=== PATIENT | female | born 1975 | race Caucasian/White ===

== ENCOUNTER 2016-10-22 05:56 | Emergency (ER) | payer OTHER ==
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
--- NOTE | 2016-10-22 08:07 | ED ORDER SUMMARY ---
..... Patient: MAINOR AQUINO OrderSheet [facility] VisitID: [id number] [place] [address] 41y, F Registration Date/Time: 10/22/2016 ORDER SHEET Weight: 58.9 kg (stated) Allergies: No Known Drug Allergy GENERAL ORDERS: CT Head wo Cont Urgent (06:36 10/22/2016 Sixto Gorman) (Ack 6:37 AMcQuoid ER Tech1) (7:10 Annie) CT Sinus/Facial Bones wo Cont Urgent (06:36 10/22/2016 Sixto Gorman) (Ack 6:37 AMcQuoid ER Tech1) (7:10 Annie) CBC w Diff Urgent (06:37 10/22/2016 Sixto Gorman) (Ack 6:38 AMcQuoid ER Tech1) (6:40 AMcQuoid ER Tech1) CMP Urgent (06:37 10/22/2016 Sixto Gorman) (Ack 6:38 AMcQuoid ER Tech1) (6:40 AMcQuoid ER Tech1) UA-Culture if indicated Urgent (06:37 10/22/2016 Sixto Gorman) (Ack 6:38 AMcQuoid ER Tech1) (7:54 MCook R.N.) (Cancelled: Physician Order8:06 Sixto Gorman) Urine Urgent (06:37 10/22/2016 Sixto Gorman) (Ack 6:38 AMcQuoid ER Tech1) (7:54 MCook R.N.) Urine Drug Screen Urgent (06:37 10/22/2016 Sixto Gorman) (Ack 6:38 AMcQuoid ER Tech1) (7:54 MCook R.N.) (Cancelled: Physician Order8:06 Sixto Gorman) Ethyl Alcohol Urgent (06:37 10/22/2016 Sixto Gorman) (Ack 6:38 AMcQuoid ER Tech1) (6:40 AMcQuoid ER Tech1) MEDICATION ORDERS: IV FLUIDS: IV NS : initial bolus none -, then 1000 mL/hr for X1 (NOW) (06:36 10/22/[address] (Ack 6:37 HSoule) (6:41 HSoule) ORDER SHEET NOTES: [Electronically signed by Jose E Squires Dr. (08:13 10/22/2016)] [Electronically signed by Debbie Mahan R.N. (09:12 10/22/2016)] [Electronically locked/signed by Debbie Mahan R.N. (09:12 10/22/2016)]
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
--- NOTE | 2016-10-22 08:07 | ED ORDER SUMMARY ---
..... Patient: MAINRO AQUION OrderSheet [facility] VisitID: [id number] [place] [address] 41y, F Registration Date/Time: 10/22/2016 ORDER SHEET Weight: 58.9 kg (stated) Allergies: No Known Drug Allergy GENERAL ORDERS: CT Head wo Cont Urgent (06:36 10/22/2016 Sixto Gorman) (Ack 6:37 AMcQuoid ER Tech1) (7:10 Annie) CT Sinus/Facial Bones wo Cont Urgent (06:36 10/22/2016 Sixto Gorman) (Ack 6:37 AMcQuoid ER Tech1) (7:10 Annie) CBC w Diff Urgent (06:37 10/22/2016 Sixto Gorman) (Ack 6:38 AMcQuoid ER Tech1) (6:40 AMcQuoid ER Tech1) CMP Urgent (06:37 10/22/2016 Sixto Gorman) (Ack 6:38 AMcQuoid ER Tech1) (6:40 AMcQuoid ER Tech1) UA-Culture if indicated Urgent (06:37 10/22/2016 Sixto Gorman) (Ack 6:38 AMcQuoid ER Tech1) (7:54 MCook R.N.) (Cancelled: Physician Order8:06 Sixto Gorman) Urine Urgent (06:37 10/22/2016 Sixto Gorman) (Ack 6:38 AMcQuoid ER Tech1) (7:54 MCook R.N.) Urine Drug Screen Urgent (06:37 10/22/2016 Sixto Gorman) (Ack 6:38 AMcQuoid ER Tech1) (7:54 MCook R.N.) (Cancelled: Physician Order8:06 Sixto Gorman) Ethyl Alcohol Urgent (06:37 10/22/2016 Sixto Gorman) (Ack 6:38 AMcQuoid ER Tech1) (6:40 AMcQuoid ER Tech1) MEDICATION ORDERS: IV FLUIDS: IV NS : initial bolus none -, then 1000 mL/hr for X1 (NOW) (06:36 10/22/[address] (Ack 6:37 HSoule) (6:41 HSoule) ORDER SHEET NOTES: [Electronically signed by Jose E Squires Dr. (08:13 10/22/2016)] [Electronically signed by Debbie Mahan R.N. (09:12 10/22/2016)] [Electronically locked/signed by Debbie Mahan R.N. (09:12 10/22/2016)]
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
--- NOTE | 2016-10-22 09:13 | ED MAR SUMMARY ---
..... Medication Administration Record [facility] [address] [place] [address] Patient: MAINOR AQUINO Visit ID: [id number] 41y, F Weight: 58.9 kg Height/Length: 64 in BMI: 22.3 ALLERGIES: No Known Drug Allergy Start 06:41 10/22/2016 Kenna Garay,, Stop 07:57 10/22/2016 Isaias Temple R.N. Medication Administered: IV NS (SALINE), Dose: IV Fluids over 1 hour(s), Rate: 1000 mL/hr, Dispensed: 1000 mL bag, Site: #1 right AC. Medication Ordered: IV NS : initial bolus none -, then 1000 mL/hr for X1 (NOW).
--- NOTE | 2016-10-22 09:13 | ED MED RECONCILIATION SUMMARY ---
Patient: MAINOR AQUINO Medication Reconciliation Report [facility] VisitID: [id number] [address] [place] [address] 41y, F Registration Date/Time: 10/22/2016 Weight: 58.9 kg Height/Length: 64 in. BMI: 22.3 ALLERGIES: No Known Drug Allergy The patient's Home Medications are listed below: NONE. The source(s) of the original Home Medication information: patient The following Medications were given to the patient in the Emergency Department: IV NS IV Fluids bolus 0, then 1000 mL/hr, administered: 10/22/2016 6:41:00 AM The following Medications were prescribed to the patient: Hydrocodone/APAP 5mg / 325mg: take 1 orally every 6 hours as needed for pain. Dispense twelve (12). No refill. -- Jose E Squires Dr.
--- NOTE | 2016-10-22 09:13 | ED MAR SUMMARY ---
..... Medication Administration Record [facility] [address] [place] [address] Patient: MAINOR AQUINO Visit ID: [id number] 41y, F Weight: 58.9 kg Height/Length: 64 in BMI: 22.3 ALLERGIES: No Known Drug Allergy Start 06:41 10/22/2016 Kenna Garay,, Stop 07:57 10/22/2016 Isaias Temple R.N. Medication Administered: IV NS (SALINE), Dose: IV Fluids over 1 hour(s), Rate: 1000 mL/hr, Dispensed: 1000 mL bag, Site: #1 right AC. Medication Ordered: IV NS : initial bolus none -, then 1000 mL/hr for X1 (NOW).
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
--- NOTE | 2016-10-22 09:13 | ED MED RECONCILIATION SUMMARY ---
Patient: MAINOR AQUINO Medication Reconciliation Report [facility] VisitID: [id number] [address] [place] [address] 41y, F Registration Date/Time: 10/22/2016 Weight: 58.9 kg Height/Length: 64 in. BMI: 22.3 ALLERGIES: No Known Drug Allergy The patient's Home Medications are listed below: NONE. The source(s) of the original Home Medication information: patient The following Medications were given to the patient in the Emergency Department: IV NS IV Fluids bolus 0, then 1000 mL/hr, administered: 10/22/2016 6:41:00 AM The following Medications were prescribed to the patient: Hydrocodone/APAP 5mg / 325mg: take 1 orally every 6 hours as needed for pain. Dispense twelve (12). No refill. -- Jose E Squires Dr.
== END 2016-10-22 09:05 | disposition home or self-care (01) ==
LOC: ED SRH 05:56
DX: S06.0X0A Concussion without loss of consciousness, initial encounter (principal); S00.83XA Contusion of other part of head, initial encounter; S70.12XA Contusion of left thigh, initial encounter; Y04.8XXA Assault by other bodily force, initial encounter; Y93.89 Activity, other specified; Y92.009 Unspecified place in unspecified non-institutional (private) residence as the place of occurrence of the external cause; Y99.9 Unspecified external cause status; F32.9 Major depressive disorder, single episode, unspecified
CPT/HCPCS: 90100; 92010; 95059